=== PATIENT | male | born 1975 | race Caucasian/White ===

== ENCOUNTER → 2017-03-05 | Outpatient (CLI) | payer BC ==
--- NOTE | 2017-03-08 07:50 | US ---
HISTORY: Testicular hypofunction, left testicular mass Study: Testicular ultrasound Comparison: No priors Technique: Grayscale, color and duplex Doppler imaging of the scrotum is provided. Findings: No evidence of hydrocele is seen on either side. The right testicle is normal and measures 2.03 x 3.0 5 x 4.38 cm. Color Doppler flow is present. No evidence of testicular mass is seen on the right. The right epididymis is normal. Involving the lower pole of the left testicle is a heterogeneous appearing solid mass with isoechoic and hyperechoic features. No calcifications are seen. The size of the mass is about 3.9 x 4.4 x 5.16 cm. There is color flow present within the mass. There is normal color flow present within the remain ing left testicle. IMPRESSION: Heterogeneous appearing solid mass involving the lower pole of the left testicle ranging in size up t o 5.16 cm. This must be considered to be a testicular cancer until proven otherwise. No evidence of testicular torsion or hydrocele. Normal left testicle. Reported By:
== END ==
LOC: RAD 09:59
PROVIDERS: ATTEND Internal Medicine
DX: N50.89 Other specified disorders of the male genital organs (principal); E29.1 Testicular hypofunction
CPT/HCPCS: 76870

== ENCOUNTER → 2017-04-08 | Outpatient (CLI) | payer BC ==
[~2017-04-08] MED LIST: NS 500 ML IV 500 ML IV ONE
--- NOTE | 2017-04-08 11:25 | CT ---
CT chest with contrast Indication: Testicular mass Technique: Helical CT images of the chest were obtained with IV contrast. Reformatted images in the c oronal and sagittal planes were also generated for review. Comparison: Testicular ultrasound 03/05/2017 Findings: The heart is normal in size without pericardial effusion. The thoracic aorta is normal in c ontour and caliber. Central airways are patent. No lymphadenopathy. Lungs are clear without focal con solidation or suspicious nodule/mass. There is no pleural effusion or pneumothorax. The abdomen/pelvis findings are reported separately. There are no aggressive osseous lesions. Impression: No evidence for intrathoracic metastatic disease or acute cardiopulmonary process. Reported By:
--- NOTE | 2017-04-08 11:37 | CT ---
CT abdomen and pelvis with and without contrast Indication: Testicular mass Technique: Helical CT images of the abdomen and pelvis were obtained with and without IV contrast. Re formatted images in the coronal and sagittal planes were also generated for review. Comparison: Testicular ultrasound 03/05/2017 Findings: Lung bases are clear. No aggressive osseous lesions are identified. Noncontrast images are unremarkable. The liver, gallbladder, spleen, pancreas, adrenals and kidneys a re unremarkable. There is no bowel inflammation or obstruction. The appendix is normal. The IVC, abdo casandra aorta and urinary bladder are normal. The prostate is normal in size and is centrally calcified . No free air, free fluid or lymphadenopathy is identified. There is a thinly encapsulated well-circumscribed lipomatous mass within the left scrotum, which queta ures 5.8 x 3.3 cm (image 155, series 3). This mass appears to be separate from the left testicle. Impression: 5.8 cm extratesticular lipomatous mass within the left scrotum, most compatible with scrotal lipoma. No aggressive features are appreciated. However, given the lesion's size, surgical consultation for r esection as well as pathology follow-up is advised. The remainder of the exam is unremarkable. Reported By:
== END | disposition home or self-care (01) ==
LOC: RAD 09:25
PROVIDERS: ATTEND Urology
DX: N50.89 Other specified disorders of the male genital organs (principal)
CPT/HCPCS: 71270; 74178; A4222